=== PATIENT | female | born 1990 | race American Indian/Alaskan Native ===

== ENCOUNTER 2022-01-06 08:41 | Emergency (ER) | payer OTHER ==
[2022-01-06 11:49] LABS: Bacteria,Urine 1+ /HPF (Negative)
[2022-01-06 11:58] LABS: Bilirubin,Urine Negative (Negative); Blood,Urine Negative (Negative); Color,Urine Straw (Yellow)
[2022-01-06 11:59] LABS: HCG Qualitative,Urine Negative (Negative); Protein,Urine <15 mg/dL mg/dL (Negative)
--- NOTE | 2022-01-06 12:31 | Emergency Department Report ---
ED Abdominal Pain HPI - General Chief Complaint: Abdominal Pain Stated Complaint: DEHYDRATED/LOWER ABD PAIN Time Seen by Provider: 01/06/22 10:11 Source: patient Mode of arrival: Ambulatory Limitations: No Limitations - History of Present Illness Initial Comments: 31-year-old black female with no past medical history presents to the emergency department for evaluation of 1 month history of intermittent lower abdominal pain and cramping. She states that for the past month she will have crampy pain in her bilateral lower abdomen that lasts just for a few minutes then goes away. She states that she is not doing anything differently but the pain just comes out of nowhere and leaves without any intervention. She denies any abdominal pain at this time. She also states that she thinks that she has a urinary tract infection because her urine is darker than usual and has not malodorous smell. She denies fever, dysuria, nausea, vomiting, diarrhea, and vaginal discharge. MD Complaint: abdominal pain -: month(s) (1) Location: LLQ, RLQ Radiation: none Migration to: no migration Severity: mild Severity scale (0 -10): 4 Quality: cramping Consistency: intermittent Associated Symptoms: denies: nausea, vomiting, diarrhea, fever, chills, dysuria, hematemesis, hematochezia, melena, hematuria, anorexia - Related Data LMP Date: 12/11/21 Allergies Allergy/AdvReac Type Severity Reaction Status Date / Time No Known Allergies Allergy Unverified 01/06/22 09:11 ED Review of Systems ROS: Stated complaint: DEHYDRATED/LOWER ABD PAIN Other details as noted in HPI Comment: All other systems reviewed and negative Constitutional: denies: chills, fever, malaise, weakness Respiratory: denies: shortness of breath Cardiovascular: denies: chest pain, palpitations Gastrointestinal: abdominal pain. denies: nausea, diarrhea, hematemesis, melena, hematochezia Genitourinary: other (Malodorous urine). denies: urgency, dysuria Musculoskeletal: denies: back pain Skin: denies: rash, lesions Neurological: denies: headache, weakness ED Past Medical Hx - Past Medical History Previous Medical History?: No - Surgical History Past Surgical History?: No ED Physical Exam - General Limitations: No Limitations General appearance: alert, in no apparent distress - Head Head exam: Present: atraumatic, normocephalic - Eye Eye exam: Present: normal appearance. Absent: conjunctival injection - Neck Neck exam: Present: normal inspection. Absent: tenderness, lymphadenopathy - Respiratory Respiratory exam: Present: normal lung sounds bilaterally. Absent: respiratory distress, wheezes, rales, rhonchi, stridor, chest wall tenderness - Cardiovascular Cardiovascular Exam: Present: regular rate, normal heart sounds - GI/Abdominal GI/Abdominal exam: Present: soft, normal bowel sounds. Absent: distended, tenderness, guarding, rebound, rigid - Extremities Exam Extremities exam: Present: normal inspection, normal capillary refill. Absent: pedal edema, joint swelling, calf tenderness - Back Exam Back exam: Present: normal inspection. Absent: CVA tenderness (R), CVA tenderness (L), vertebral tenderness - Neurological Exam Neurological exam: Present: alert, oriented X3, normal gait - Psychiatric Psychiatric exam: Present: normal affect, normal mood - Skin Skin exam: Present: warm, dry, intact, normal color ED Course Vital Signs 01/06/22 01/06/22 09:09 12:46 Temperature 98.5 F 98.7 F Pulse Rate 70 88 Respiratory 18 16 Rate Blood Pressure 125/83 122/80 [Left] O2 Sat by Pulse 99 100 Oximetry ED Medical Decision Making - Medical Decision Making 31-year-old black female with no past medical history presents to the emergency department for evaluation of 1 month history of intermittent lower abdominal pain and cramping. She states that for the past month she will have crampy pain in her bilateral lower abdomen that lasts just for a few minutes then goes away. She states that she is not doing anything differently but the pain just comes out of nowhere and leaves without any intervention. She denies any abdominal pain at this time. She also states that she thinks that she has a urinary tract infection because her urine is darker than usual and has not malodorous smell. She denies fever, dysuria, nausea, vomiting, diarrhea, and vaginal discharge Physical exam unremarkable. Urine negative for urinary tract infection and . Patient without any complaints of abdominal pain at this time. No acute distress noted. Patient be discharged home and advised to follow-up with her primary care provider for further evaluation and management. She is advised to return to the emergency department if she develops fever, worsening abdominal pain, or any concerning symptoms. She verbalizes understanding of and agreement with plan of care. Laboratory Results - last 24 hr 01/06/22 10:44 Urine Color Straw Urine Turbidity Clear Urine pH 6.0 Ur Specific [place] 1.010 Urine Protein <15 mg/dl Urine Glucose (UA) Negative Urine Ketones Negative Urine Blood Negative Urine Nitrite Negative Ur Reducing Substances Not Reportable Urine Bilirubin Negative Urine Ictotest Not Reportable Urine Urobilinogen 0.0 Ur Leukocyte Esterase Negative Urine WBC (Auto) 1.0 Urine RBC (Auto) 7.0 U Epithel Cells (Auto) 13.0 Urine Bacteria (Auto) 1+ Urine HCG, Qual Negative Critical care attestation.: If time is entered above; I have spent that time in minutes in the direct care of this critically ill patient, excluding procedure time. ED Disposition Clinical Impression: Abdominal pain Qualifiers: Abdominal location: lower abdomen, unspecified Qualified Code(s): R10.30 - Lower abdominal pain, unspecified Disposition: HOME / SELF CARE / HOMELESS Is pt being admited?: No Does the pt Need Aspirin: No Condition: Stable Instructions: Abdominal Pain, Adult, [id number], Abdominal Pain (ED) Additional Instructions: Follow-up with your primary care provider for further evaluation and management. Return to the emergency department as needed. Referrals: ANGELO EATON MD [Staff Physician] - 3-5 Days Time of Disposition: 12:31
[2022-01-06 12:47] VITALS: BP 122/80
== END 2022-01-06 12:47 | disposition home or self-care (01) ==
LOC: ED 08:41
DX: R10.31 Right lower quadrant pain (principal); R10.32 Left lower quadrant pain
CPT/HCPCS: 81001; 81025; 99283